=== PATIENT | female | born 1975 ===

== ENCOUNTER 2020-06-05 06:39 | Outpatient (CLI) | payer OTHER | END 2020-06-05 06:40 | disposition home or self-care (01) | LOC: EKG 06:39 → ADM 11:45 → EDSTATUS 06-12 11:45 → CIR.AMB 06-12 11:45 | PROVIDERS: ATTEND Obstetrics & Gynecology | DX: Z03.818 Encounter for observation for suspected exposure to other biological agents ruled out (principal); Z20.828 Contact with and (suspected) exposure to other viral communicable diseases; N91.1 Secondary amenorrhea; I10 Essential (primary) hypertension ==